=== PATIENT | male | born 1990 | race Caucasian/White ===

== ENCOUNTER 2021-11-20 14:10 | Emergency (ER) | payer SELFPAY ==
[2021-11-20 14:16] VITALS: BP 124/61; PULSE 70; RESP 16; TEMP 36.8; O2SAT 99
[2021-11-20 15:28] VITALS: BP 109/49; PULSE 59; TEMP 35.7; O2SAT 97
--- NOTE | 2021-11-20 16:19 | ED.GENADUL_ITS ---
Discharge Plan Disposition Patient Disposition: HOME Condition: Stable Discharge Details Clinical Impression: Reactive lymphadenopathy, Lymph node enlargement Primary Care Provider: Unknown,Unknown ED Provider: Amber Mcduffie Home Meds and New Rx's Prescriptions: No Action No Known Home Meds 0RF Discharge Instructions Instructions: Lymphadenopathy (ED) Additional Instructions: It is suspected that your areas of neck swelling are most likely secondary to a lymph node. These may be an reaction to the local skin rash on your scalp or recent dental issue. It is recommended that you take ibuprofen 600 mg every 6 hours as needed and directed for pain. You can consider applying warm compresses to the affected area. If your symptoms do not improve or worsen, return immediately to the emergency department for reevaluation and consideration for lab work and imaging at that time. You have been placed on care management list to arrange for a follow-up appointment with a primary care doctor to establish care and for reevaluation Discharge Data Discharge Date/Time-TO BE ENTERED AT DEPARTURE: 11/20/21 16:40 Discharge Physician: Amber Mcduffie Medical Decision Making 30-year-old male with no significant past medical history presents with tender lumps on the left side of his neck for the last 5 days. Denies any other associated symptoms. He does endorse having a rash on the left side of his head in the last few weeks which is near resolved. Patient appears comfortable and nontoxic. His vitals are within normal limits. He has a 3 mm crusted lesion on the left side of his head. He has 2 to centimeter soft, mildly tender, mobile masses on the left side of his neck in the posterior cervical region which appear likely consistent with lymph nodes. Discussed with patient that it is reassuring that they are soft and mobile, however the size of 2 cm may warrant further investigation. Discussed with patient that he may have a viral process or a reactive lymph node in the setting of recent left-sided scalp rash scalp rash, and recent left lower dental fracture. The rash does not appear consistent with shingles or cellulitis and the dental decay does not appear to warrant antibioitic treatment at this time. Patient states he would rather continue to monitor his symptoms and trial a course of NSAIDs of the neck few days. Advised patient to return here immediately if symptoms not improve or worsen for consideration of labs and imaging at that time. Patient placed on care management list to arrange for follow-up appoint with the primary care doctor to establish care for reevaluation. Medical Records Medical records reviewed: Yes I reviewed the patient's medical records. HPI General Mode of arrival: ambulatory . Date/Time Provider Initiated Documentation: 11/20/21 14:27 . Limitations to Documentation: no limitations . Information obtained by: patient . HPI Narrative: Patient is a 30-year-old male with no significant past medical history presents with tender lymph node on the left side of his neck for the past 5 days. He states they have grown in size and are mildly tender. He denies any fever, headache, ear pain, nasal discharge, sore throat, cough, chest pain, shortness of breath, weight loss, night sweats. He states he has been feeling fine ot [facility]wise. He does state that he had a rash on the left side of his head in the last few weeks which has since near resolved. He states he has had chickenpox in the past and thought the rash is secondary to shingles. He states he has not seen anyone for this rash and has not received any treatment. Related Data Home Medications Medication Instructions Recorded Confirmed Unknown [No Known Home Meds] 11/20/21 11/20/21 Allergies Allergy/AdvReac Type Severity Reaction Status Date / Time No Known Allergies Allergy Unverified 11/20/21 14:22 General Stated Complaint: RashLesion ILA: 4 Review of Systems All systems reviewed & are unremarkable except as noted in HPI and below Constitutional Constitutional: Reports as per HPI, Denies body ache(s), Denies chills, Denies fatigue, Denies fever(s), Denies headache(s), Denies malaise, Denies night sweats, Denies poor appetite and Denies weight loss Eyes Eyes: Denies blurry vision ENT Ears, Nose, Mouth, and Throat: Denies dizziness, Denies headache(s), Denies sore throat and Denies throat swelling Cardiovascular Cardiovascular: Denies chest pain and Denies dyspnea Respiratory Respiratory: Denies cough and Denies dyspnea Gastrointestinal Gastrointestinal: Denies abdominal pain, Denies diarrhea and Denies vomiting Genitourinary Genitourinary: Denies hematuria and Denies dysuria Musculoskeletal Musculoskeletal: Denies back pain and Denies numbness Integumentary/Breasts Skin/Breast: Denies lesions and Denies rash Neurologic Neurologic: Denies dizziness, Denies headache(s), Denies localized weakness and Denies numbness Endocrine Endocrine: Denies fatigue Allergic/Immunologic Allergic/Immunologic: Denies throat swelling PFSH All Active Problems (Updated 11/20/21 @ 16:29 by Amber Mcduffie DO) Reactive lymphadenopathy (Acute) Lymph node enlargement (Acute) Social History Smoking/Tobacco Use Status: Current every day Tobacco Type: smokeless tobacco Smoking risk assessment performed?: Yes Substance use type: marijuana Exam Const General: cooperative, healthy appearing and no acute distress Orientation: alert, awake and oriented x3 HENMT Head: normal to inspection Head images: 1. 2mm crusted lesion Ears: hearing grossly normal bilaterally, external ears normal and TM's normal bilaterally General nose exam: external nose normal Face and sinus: normal facial exam Mouth: oral mucosae normal Teeth and gingiva: poor dentition Teeth image: 1. Dental fracture, no surrounding erythema, edema, fluctuance or induration. Throat: posterior oropharynx normal Eyes General: appearance normal, both eyes and all related structures Neck Neck: normal visual inspection Neck images: 1. 2cm soft, mobile, tender superior posterior cervical mass, c/w lymph node. 2. 2cm soft, mobile, tender superior posterior cervical mass, c/w lymph node. Resp Effort & Inspection: normal respiratory effort and able to speak in complete sentences Cardio Rate: regular rate Skin General skin exam: no rashes or lesions noted Neuro General: patient alert, patient awake and patient oriented x3 Motor: muscle tone normal throughout Extrem General: normal to inspection and full ROM Psych Appearance: grossly normal Affect: normal affect Course Vital Signs Vital signs: Vital Signs Temperature 98.2 F 11/20/21 14:16 Pulse 70 11/20/21 14:16 Respiratory Rate 16 11/20/21 14:16 Blood Pressure 124/61 11/20/21 14:16 Pulse Oximetry 99 11/20/21 14:16 Temperature 96.3 F L 11/20/21 15:28 Temperature Source Tympanic 11/20/21 15:28 Pulse 59 L 11/20/21 15:28 Respiratory Rate 16 11/20/21 14:16 Respiratory Effort 11/20/21 14:16 Blood Pressure 109/49 L 11/20/21 15:28 Blood Pressure Position Sitting 11/20/21 14:16 Pulse Oximetry 97 11/20/21 15:28 Oxygen Delivery Method Room Air 11/20/21 15:28 Oxygen Flow Rate 0 11/20/21 15:28 Pain Level 2 11/20/21 14:16 PAWSS Have you Been Recently Intoxicated or Drunk Within the Last 30 days?: Yes Have you Ever Experienced Previous Episodes of Alcohol Withdrawal?: No Have you ever Experienced Withdrawal Seizures?: No Have you ever Experienced Delirium Tremens(DT)s?: No Have you ever undergone Alcohol Rehabilitation Treatment (i.e, inpt ot outpatient treatment programs)?: No Have you ever Experienced Blackouts?: No Have you ever Combined Alcohol with other Downers within the last 90 days?: No Have you ever Combined Alcohol with any other Substance of Abuse during the last 90 days?: No Positive Blood Alcohol level on Presentation? [PCS.BAL]: No Evidence of Increased Autonomic Activity (i.e. HR>120, tremor, sweating, agitation, nausea)?: No Result: 1
[2021-11-20 16:40] VITALS: BP 109/49; PULSE 59; TEMP 35.7; O2SAT 97
== END 2021-11-20 16:40 | disposition home or self-care (01) ==
PROVIDERS: Emergency Provider Physician Assistant
DX: R59.0 Localized enlarged lymph nodes (principal); Z86.16 Personal history of COVID-19
CPT/HCPCS: 99282

== ENCOUNTER 2021-11-30 13:00 | Emergency (ER) | payer SELFPAY ==
[2021-11-30 13:05] VITALS: BP 134/86; PULSE 78; RESP 15; TEMP 36.4; O2SAT 98
--- NOTE | 2021-11-30 13:15 | ED.GENADUL_ITS ---
Discharge Plan Disposition Patient Disposition: HOME Condition: Stable Discharge Details Clinical Impression: Lymphadenopathy, cervical Primary Care Provider: Unknown,Unknown ED Provider: Amber Mcduffie Home Meds and New Rx's Prescriptions: No Action No Known Home Meds 0RF Discharge Instructions Instructions: Lymphadenopathy (ED) Additional Instructions: Your CT scan notes that you have lymph nodes which may be secondary to infection or may be the result of another process. It is recommended by [facility] that you obtain a biopsy of these lymph nodes for further evaluation. Drink plenty of fluids and get plenty of rest. Take 600 mg of ibuprofen every 6 hours as needed and directed for pain. You have been placed on care management list to help arrange for a follow-up appointment with a primary care doctor to establish care and for referral to [facility] interventional radiology or general surgery for biopsy of your lymph nodes for further evaluation. It is also recommended that you follow-up with a primary care doctor for recheck of your liver enzymes which were elevated today. You can call [facility] main number at [phone] and ask for hospice care sales consultant Shelly Stuart to confirm this appointment and for any further information. Return immediately to the emergency department if you develop any worsening or new concerning symptoms. Discharge Data Discharge Date/Time-TO BE ENTERED AT DEPARTURE: 11/30/21 16:53 Discharge Physician: Amber Mcduffie Medical Decision Making 30-year-old male who presents to the ED with complaint of 2 tender lumps to the left side of his neck for the past few weeks. Vitals within normal limits. Patient appears comfortable and nontoxic. I evaluated patient on his ED visit on November 20 and discussed obtaining lab work and imaging at that time but he declined. His exam at that time was reassuring in that the masses were soft, mobile without surrounding cellulitis and he gen erally appears nontoxic without other reported symptoms of fever, or weight loss and it was suspected that they are lymph nodes. He had no other signs or symptoms, there was no indication for antibiotics or steroids at that time. He had preferred to take ibuprofen at that time and then return if needed. He states that his symptoms did improve after the ibuprofen. Review of his neck reveals that the masses do appear smaller in size without surrounding cellulitis. He has a normal ENT exam. Suspect most likely they are lymph nodes considering that they did improve with ibuprofen and remain soft and mobile. Patient is concerned that they are persistent. He is agreeable with plan for IV, screening labs and CT neck. We will give a dose of Toradol, Decadron and fluids and reassess. Labs and imaging reviewed. Normal white blood cell count. Normal electrolytes. AST elevated at 138. ALT elevated at 71. Normal ESR and CRP. CT neck notes: IMPRESSION: Enlarged left-sided posterior cervical chain lymph nodes could be reactive secondary to infection versus lymphoma. Imaging reviewed with radiology who notes that the nodes are reassuring appearing in that they are homogenous. Discussed case with [facility] hematology who reviewed imaging. As this is an isolated lymphadenopathy, recommend follow-up with [facility] IR or general surgery for excisional biopsy. Recommend adding an LDH level which if low is more reassuring that this is likely reactive and not indicative of another more concerning process. His LDH level was noted to minimally elevated at 249 outside of the reported normal range of 85-227. Patient does not have a PCP. He was placed on care management list to arrange for follow-up appointment with the primary care doctor on his last visit earlier this month but has not yet heard back. A detailed message was left for care management list to ensure that patient has follow-up with [facility] IR or [facility] surgery as soon as possible for excisional biopsy. He may need urgent follow-up with her PCP to allow this referral to happen ro. Pt reports he understands and feels comfortable with this plan. Usual and customary return precautions given prior to discharge. Medical Records Medical records reviewed: Yes I reviewed the patient's medical records. Imaging Data Radiologic Study: Radiologist's impression: CT NECK W CLINICAL HISTORY:? L lateral cervical neck lymph nodes. ? TECHNIQUE:? Imaging Protocol: Axial computed tomography images with coronal and sagittal reformatted images were created and reviewed CONTRAST MATERIAL:? Intravenous: Omnipaque 350 Contrast volume:99 ml Contrast route:IV - COMPARISON:? No exams were available for comparison? FINDINGS: The exam is limited by lack of fat delineating the muscles.? Parotids/subm andibular/thyroid gland:? Normal. Lymphadenopathy:? There are enlarged lymph nodes on the left side of the of the neck in the posterior cervical chain.? More superior, VA node measures 2.2 cm.? An inferior, VB, node measures 2.5 cm.? There are few other smaller nodes the posterior cervical chain on the left peer.? Carotids/Jugular:? Within normal limits. Soft tissues:? The floor the mouth is unremarkable. The epiglottis and vocal cords are within normal limits. Images through both lung apices show a few small blebs..? IMPRESSION: Enlarged left-sided posterior cervical chain lymph nodes could be reactive secondary to infection versus lymphoma. Results of this exam have been verbally communicated with emergency department provider. Lab Data Lab results reviewed: Yes I reviewed the patient's lab results. Labs: Laboratory Tests Range/Units 11/30/21 11/30/21 11/30/21 13:30 13:30 13:30 WBC (4.4-10.8) 10^3/uL 9.27 RBC (4.36-5.78) 10^6/uL 4.74 Hgb (13.5-17.5) g/dL 14.8 Hct (40.0-50.0) % 44.5 MCV (80-95) fL 93.9 MCH (27.0-33.0) pg 31.2 MCHC (32.0-36.0) % 33.3 RDW (11.8-14.1) % 12.4 Plt Count (130-400) 10^3/uL 319 MPV (8.0-11.0) fL 8.5 Immature Gran % 0.3 Neutrophils % 77.5 Lymphocytes % 15.6 Monocytes % 5.8 Eosinophils % 0.5 Basophils % 0.3 Nucleated RBC % % 0 Absolute Neutrophils (1.2-6.7) 10^3/uL 7.17 H Absolute Lymphocytes (1.2-3.4) 10^3/uL 1.45 Absolute Monocytes (0.1-0.8) 10^3/uL 0.54 Absolute Eosinophils (0.0-0.7) 10^3/uL 0.05 Absolute Basophils (0.0-0.2) 10^3/uL 0.03 ESR (0-15) mm/hr 2 Sodium (136-145) mmol/L 141 Potassium (3.5-5.1) mmol/L 4.1 Chloride (98-107) mmol/L 105 Carbon Dioxide (21.0-32.0) mmol/L 26.7 Anion Gap (3-11) mmol/L 9.3 BUN (7-18) mg/dL 18 Creatinine (0.70-1.30) mg/dL 1.1 Estimated GFR/1.73 m2 (mL/min/1.73m2) >= 60.00 Glucose (74-106) mg/dL 126 H Calcium (8.5-10.1) mg/dL 9.1 Total Bilirubin (0.2-1.0) mg/dL 0.5 AST (15-37) U/L 138 H ALT (16-63) U/L 71 H Alkaline Phosphatase (46-116) U/L 87 C-Reactive Protein (0.0-0.3) mg/dL < 0.05 Total Protein (6.4-8.2) g/dL 8.1 Albumin (3.4-5.0) g/dL 4.5 HPI General Mode of arrival: ambulatory . Date/Time Provider Initiated Documentation: 11/30/21 13:01 . Limitations to Documentation: no limitations . Information obtained by: patient . HPI Narrative: Patient is a 30-year-old male with no significant past medical history presents for reevaluation of 2 tender lumps noted to the left side of his neck for the past few weeks. Patient was seen here on November the same complaint and had discussed obtaining labs and imaging that he had declined at that time and preferred rather to take ibuprofen and then return if needed. Patient states he took ibuprofen for over 24 hours and noted that the symptoms improved but then stopped taking the medication and symptoms remained unchanged. He denies any worsening or improvement of symptoms since then. He states few weeks ago he noted tender lumps to the left side of his neck. He states initially they grow in size but have not grown since a couple weeks ago. He denies any fever, headache, sore throat, difficulty swallowing, neck pain, injury or any other change in his medical Related Data Home Medications Medication Instructions Recorded Confirmed Unknown [No Known Home Meds] 11/20/21 11/30/21 Allergies Allergy/AdvReac Type Severity Reaction Status Date / Time No Known Allergies Allergy Unverified 11/30/21 13:11 General Stated Complaint: Cellulitis ILA: 3 Review of Systems All systems reviewed & are unremarkable except as noted in HPI and below Constitutional Constitutional: Reports as per HPI, Denies chills, Denies excessive sweating, De nies fatigue and Denies fever(s) Eyes Eyes: Denies blurry vision ENT Ears, Nose, Mouth, and Throat: Denies dizziness, Denies sore throat, Denies throat swelling and Reports other (2 lumbs L side of neck ) Cardiovascular Cardiovascular: Denies chest pain and Denies dyspnea Respiratory Respiratory: Denies cough and Denies dyspnea Gastrointestinal Gastrointestinal: Denies abdominal pain, Denies diarrhea and Denies vomiting Genitourinary Genitourinary: Denies hematuria and Denies dysuria Musculoskeletal Musculoskeletal: Denies back pain and Denies numbness Integumentary/Breasts Skin/Breast: Denies lesions and Denies rash Neurologic Neurologic: Denies behavioral changes, Denies confusion, Denies dizziness, Denies localized weakness and Denies numbness Psychiatric Psychiatric: Denies behavioral changes, Denies confusion and Denies depression Endocrine Endocrine: Denies excessive sweating and Denies fatigue Hematologic/Lymphatic Hematologic/Lymphatic: Denies easy bruising and Denies lymphadenopathy Allergic/Immunologic Allergic/Immunologic: Denies throat swelling PFSH All Active Problems (Updated 11/30/21 @ 16:38 by Amber Mcduffie DO) Reactive lymphadenopathy (Acute) Lymph node enlargement (Acute) Lymphadenopathy, cervical (Acute) Social History Smoking/Tobacco Use Status: Current every day Tobacco Type: e-cigarettes Smoking risk assessment performed?: Yes Drug use: Daily Substance use type: marijuana Do you feel safe at home: Yes Do you feel safe in your relationship?: Yes Exam Const General: cooperative and healthy appearing Orientation: alert, awake and oriented x3 HENMT Head: normal to inspection Head images: 1. 2 x 2 centimeter mobile soft mass within the left superior lateral neck. There is no surrounding erythema, edema, induration, fluctuance, crepitus or rash. 2. 1.5cm soft mobile mass noted within the left inferior lateral neck. There is no surrounding erythema, edema, induration, fluctuance, crepitus or rash. Ears: hearing grossly normal bilaterally, external ears normal and TM's normal bilaterally General nose exam: external nose normal Face and sinus: normal facial exam Mouth: oral mucosae normal Teeth and gingiva: dentition normal Throat: posterior oropharynx normal Eyes General: appearance normal, both eyes and all related structures Eyelids: eyelids normal Pupils: PERRL EOM: EOM intact bilaterally Neck Neck: normal visual inspection, full ROM, no meningeal signs, trachea midline, supple, no anterior neck swelling and No submandibular swelling Lymphatic: no lymphadenopathy noted Chest Chest: normal inspection of the chest Resp Effort & Inspection: normal respiratory effort and able to speak in complete sentences Auscultation: clear to auscultation bilaterally Cardio Rate: regular rate Rhythm: regular rhythm GI Inspection: normal to inspection Palpation: soft, not firm, no guarding, no hepatosplenomegaly, no masses and nontender Auscultation: normal bowel sounds Back/Spine/Pelvis Back: no CVA tenderness Skin General skin exam: no rashes or lesions noted Neuro General: patient alert and patient awake Cognition: normal cognition Speech: speech normal Gait: normal gait Motor: muscle tone normal throughout Sensory Exam: no sensory deficits noted Extrem General: normal to inspection, full ROM and capillary refill normal Psych Appearance: grossly normal Mental Status: mental status grossly normal Speech and Movement: speech and movement normal Affect: normal affect Thought Process: normal Course Vital Signs Vital signs: Vital Signs Temperature 97.5 F L 11/30/21 13:05 Pulse 78 11/30/21 13:05 Respiratory Rate 15 11/30/21 13:05 Blood Pressure 134/86 11/30/21 13:05 Pulse Oximetry 98 11/30/21 13:05 Temperature 97.5 F L 11/30/21 13:05 Temperature Source Oral 11/30/21 13:05 Pulse 78 11/30/21 13:05 Respiratory Rate 15 11/30/21 13:05 Respiratory Effort Non-Labored 11/30/21 13:10 Blood Pressure 134/86 11/30/21 13:05 Blood Pressure Position Sitting 11/30/21 13:05 Pulse Oximetry 98 11/30/21 13:05 Oxygen Delivery Method Room Air 11/30/21 13:05 Oxygen Flow Rate 0 11/30/21 13:05 Pain Level 1 11/30/21 13:05
--- NOTE | 2021-11-30 13:30 | DI.CT_ITS ---
Exam(s) CT NECK W EXAM: CT NECK W CLINICAL HISTORY: L lateral cervical neck lymph nodes. TECHNIQUE: Imaging Protocol: Axial computed tomography images with coronal and sagittal reformatted images were created and reviewed CONTRAST MATERIAL: Intravenous: Omnipaque 350 Contrast volume:99 ml Contrast route:IV - COMPARISON: No exams were available for comparison FINDINGS: The exam is limited by lack of fat delineating the muscles. Parotids/submandibular/thyroid gland: N ormal. Lymphadenopathy: There are enlarged lymph nodes on the left side of the of the neck in the posterior cervical chain. More superior, VA node measures 2.2 cm. An inferior, VB, node measures 2.5 cm. Th ere are few other smaller nodes the posterior cervical chain on the left peer. Carotids/Jugular: Within normal limits. Soft tissues: The floor the mouth is unremarkable. The epiglottis and vocal cords are within normal limits. Images through both lung apices show a few small blebs.. IMPRESSION: Enlarged left-sided posterior cervical chain lymph nodes could be reactive secondary to infection jenni germaine lymphoma. Results of this exam have been verbally communicated with emergency department provider. RADIATION DOSE DELIVERED: 269.29mGy.cm Total DLP DATA REPOSITORY: All CT scans at this facility are submitted to the National Radiology Data Registry (NRDR) Dose Index Registry (DIR) with the [employer] (A[employer]). RADIATION OPTIMIZATION: All CT scans at this facility use at least one of these dose optimization te chniques: automated exposure control; mA and/or kV adjustment per patient size (includes targeted exa ms where dose is matched to clinical indication); or iterative reconstruction.
[2021-11-30 13:38] LABS: Abs Immature Grans 0.03 10^3/uL (0.0-0.06); Absolute Basophil Count 0.03 10^3/uL (0.0-0.2); Absolute Eosinophil Count 0.05 10^3/uL (0.0-0.7); Absolute Lymphocyte Count 1.45 10^3/uL (1.2-3.4); Absolute Monocyte Count 0.54 10^3/uL (0.1-0.8); Absolute Neutrophil Count 7.17 10^3/uL (1.2-6.7); Basophils % 0.3; Eosinophils % 0.5; HCT 44.5 % (40.0-50.0); HGB 14.8 g/dL (13.5-17.5); Immature Grans % 0.3; Lymphocytes % 15.6; MCH 31.2 pg (27.0-33.0); MCHC 33.3 % (32.0-36.0); MCV 93.9 fL (80-95); MPV 8.5 fL (8.0-11.0); Monocytes % 5.8; Neutrophils % 77.5; Nucleated RBC 0 %; Platelet Count 319 10^3/uL (130-400); RBC 4.74 10^6/uL (4.36-5.78); RDW 12.4 % (11.8-14.1); RDW-SD 43.4 fL; WBC 9.27 10^3/uL (4.4-10.8)
[2021-11-30 13:44] LABS: ESR 2 mm/hr (0-15)
[2021-11-30] MEDS: Ketorolac 30 MG/ML VIAL IVP (13:53)
[2021-11-30] MEDS: Normal Saline 1,000 ML 1000 ML IV (13:53)
[2021-11-30] MEDS: Dexamethasone 10 MG/ML VIAL IVP (13:53)
[2021-11-30 13:56] LABS: ALT 71 U/L (16-63); AST 138 U/L (15-37); Albumin 4.5 g/dL (3.4-5.0); Alkaline Phosphatase 87 U/L (46-116); Anion Gap 9.3 mmol/L (3-11); BUN 18 mg/dL (7-18); Bilirubin, Total 0.5 mg/dL (0.2-1.0); CO2 26.7 mmol/L (21.0-32.0); CREATININE 1.1 mg/dL (0.70-1.30); Calcium 9.1 mg/dL (8.5-10.1); Chloride 105 mmol/L (98-107); Glucose 126 mg/dL (74-106); Potassium 4.1 mmol/L (3.5-5.1); Sodium 141 mmol/L (136-145); Total Protein 8.1 g/dL (6.4-8.2)
[2021-11-30 13:58] LABS: C-Reactive Protein < 0.05 mg/dL (0.0-0.3)
[2021-11-30] MEDS: Omnipaque 350 MG/ML 100 ML BTL IJ (14:23)
[2021-11-30] MEDS: Normal Saline Flush 10 ML SYR IVP (14:24)
[2021-11-30 14:42] VITALS: BP 147/78; PULSE 76; RESP 14; TEMP 36.8; O2SAT 98
[2021-11-30 15:42] VITALS: BP 124/71; PULSE 68; TEMP 37; O2SAT 99
--- NOTE | 2021-11-30 15:56 | NUR.NOTE ---
Nursing Note: Referral given to Care Management: 1. [place] [facility] [place] [facility] [place] biopsy of lymph nodes of left side of neck, [place]. 2. Needs PCP for follow up after the [place]. [place] [facility] [place] Tonja Muse
[2021-11-30 16:14] LABS: LDH 249 U/L (85-227)
[2021-11-30 16:54] VITALS: BP 124/71; PULSE 68; TEMP 37; O2SAT 99
--- NOTE | 2021-12-01 13:04 | CMACTNOTE_ITS ---
- If Service Date Differs Date of service: 12/01/21 Time of Service: 13:04 Care Management Activity Note Saji is seen in the ED for enlarged lymph nodes. At the request of ED provider, CM coordinates a referral [place] [facility]. A referral is also made to Jason Paredes MD, of [facility], as Dr. Paredes was the on-call provider when Saji was first seen in the ED for lymphadenopathy, to assist Saji in establishing care with a PCP. A third referral is also made to [facility] to enlist their assistance in exploring health insurance options as Saji is currently uninsured. ANN attempts to reach Saji by telephone to discuss the referrals being made but there is no answer. ANN leaves a detailed message on his voicemail.
== END 2021-11-30 16:53 | disposition home or self-care (01) ==
PROVIDERS: Emergency Provider Physician Assistant
DX: R59.0 Localized enlarged lymph nodes (principal)
CPT/HCPCS: 36415; 70491; 80053; 85652; 96361; 96374; 96375; 99285; 83615; 85025; 86140; 99284; J1100; J1885; J3490

== ENCOUNTER 2023-03-03 01:07 | Outpatient (CLI) | payer MEDICAID, SELFPAY ==
--- NOTE | 2023-03-03 07:00 | DI.RAD_ITS ---
Exam(s) XR CERVICAL SPINE COMP 4-5V EXAM: XR CERVICAL SPINE COMP 4-5V CLINICAL HISTORY: limited cervical range of motion,ddd,m50.30,m53.82. TECHNIQUE: 2D digital imaging was performed. COMPARISON: No exams were available for comparison FINDINGS: Five views There is no evidence of fracture, listhesis, nor offset of the spinal laminar line. This spaces all exhibit normal height. On the oblique views there are small Luschka joint osteophytes on the left si de at C5-6 level. Facet joints appear unremarkable. No cervical ribs. Bone density is normal. No osseous lesions IMPRESSION: Small left-sided Luschka joint osteophyte at C5-6 level. This is indirect evidence of an element deg enerative disc disease, despite normal disc height. If clinically indicated follow-up MRI can be performed for added sensitivity and specificity. Wet read, as per request DATA REPOSITORY: RADIATION DOSE DELIVERED:
== END 2023-03-03 01:27 ==
LOC: DI 01:07
PROVIDERS: Referring Provider Nurse Practitioner; Visit Provider Nurse Practitioner
DX: M50.322 Other cervical disc degeneration at C5-C6 level (principal); M53.82 Other specified dorsopathies, cervical region
CPT/HCPCS: 36415; 80053; 80061; 86704; 86706; 86803; 87340; 87389; 72050; 82728; 85025

== ENCOUNTER 2023-03-22 01:30 | Outpatient (CLI) | payer MEDICAID, SELFPAY ==
--- NOTE | 2023-03-22 07:30 | DI.MRI_ITS ---
Exam(s) MR CERVICAL SPINE WO EXAM: MR CERVICAL SPINE WO CLINICAL HISTORY: evaluate osteophyte; joint space; bony path, decreased rom, ddd, M25.70 TECHNIQUE: Multiplanar multisequence MRI of the cervical spine was performed without intravenous con trast. COMPARISON: CR XR CERVICAL SPINE COMP 4-5V from 03/03/2023 FINDINGS: BONES: Vertebral body heights are maintained. Alignment is normal. Bone marrow signal intensity is wi thin normal limits. CERVICAL CORD: Craniovertebral junction is unremarkable. The cervical cord is normal size and signal intensity. SOFT TISSUES: Unremarkable. C2-3: No disc herniation or bulge is identified. No evidence of neural foraminal narrowing. No signi ficant central canal stenosis C3-4: No disc herniation or bulge is identified. No evidence of neural foraminal narrowing. No signif icant central canal stenosis C4-5: Minimal disc bulging and minimal endplate osteophytes. No evidence of neural foraminal narrowi ng. No significant central canal stenosis C5-6: Endplate osteophytes eccentric toward the left. Minimal disc bulging. Moderate left neural fo raminal narrowing. No significant central canal stenosis C6-7: Minimal this bulging and small endplate osteophytes. Moderate left neural foraminal narrowing. Mild narrowing of the AP dimension of the central canal. C7-T1: No disc herniation or bulge is identified. No evidence of neural foraminal narrowing. No signi ficant central canal stenosis IMPRESSION: Degenerative disc changes at C5-6 and C6-7 cause moderate left neural foraminal narrowing. No disc h erniation is identified. DATA REPOSITORY:
== END 2023-03-22 01:50 ==
LOC: DI 01:30
PROVIDERS: PCP Nurse Practitioner; Visit Provider Student in an Organized Health Care Education/Training Program
DX: M53.82 Other specified dorsopathies, cervical region; M50.323 Other cervical disc degeneration at C6-C7 level; M50.322 Other cervical disc degeneration at C5-C6 level; M25.78 Osteophyte, vertebrae
CPT/HCPCS: 72141

== ENCOUNTER 2023-05-21 14:59 | Emergency (ER) | payer MEDICAID, SELFPAY ==
[2023-05-21 15:03] VITALS: BP 142/96; PULSE 114; RESP 20; TEMP 37.3; O2SAT 99
--- NOTE | 2023-05-21 15:25 | W.ED.GENAD ---
Discharge Plan Discharge Details Chief Complaint: Nk/Back Pain Primary Care Provider: Misty Wallace ED Provider: Daysi Ring Home Meds and New Rx's Prescriptions: No Action ibuprofen 200 mg Tablet 200 mg PO Q6H PRN Medical Decision Making 32-year-old male presents to the ER with a chief complaint of lower back pain with radiation to his left anterior thigh which began yesterday after sitting down on his seat bent over to put on his boots. He does have a history of cervical spine degenerative disc disorder bipolar disorder. He reports he has been taking ibuprofen with little to no relief. Denies any loss of bowel or bladder control no saddle anesthesia. He does have positive straight leg test noted on the left. Distal CMS intact. Does have some left lower lumbar tenderness with palpation and left paraspinous tenderness palpation. Pain is worse with movement and walking. Lumbar spine x-rays ordered, IM Toradol and Norflex. Care is to be handed off to oncoming provider Surjit Harvey NP pending x-rays reevaluation and disposition. Discussed patient case with him he verbalizes understanding. This text was generated using [employer] system, please disregard any oddities of phrase or misspellings. HPI General Mode of arrival: ambulatory. Date/Time Provider Initiated Documentation: 05/21/23 15:05. Limitations to Documentation: no limitations. Information obtained by: patient, RN notes reviewed and old records reviewed. HPI Narrative: 32-year-old male presents to the ER with a chief complaint of lower back pain with radiation to his left anterior thigh which began yesterday after sitting down on his seat bent over to put on his boots. He does have a history of cervical spine degenerative disc disorder bipolar disorder. He reports he has been taking ibuprofen with little to no relief. Denies any loss of bowel or bladder control no saddle anesthesia. He does have positive straight leg test noted on the left. Distal CMS intact. Does have some left lower lumbar tenderness with palpation and left paraspinous tenderness palpation. Pain is worse with movement and walking. Related Data Home Medications Medication Instructions Recorded Confirmed ibuprofen 200 mg tablet 200 mg PO Q6H PRN 05/21/23 05/21/23 Allergies Allergy/AdvReac Type Severity Reaction Status Date / Time No Known Allergies Allergy Verified 02/22/23 09:09 General Stated Complaint: Nk/Back Pain ILA: 3 Review of Systems Musculoskeletal Musculoskeletal: Reports as per HPI, Reports back pain and Reports radiating pain into limb PFSH All Active Problems (Updated 03/03/23 @ 14:48 by Mei Alberto DO) Degenerative disc disease, cervical (Acute) Decreased ROM of intervertebral discs of cervical spine (Acute) Osteophyte determined by x-ray (Acute) Luschka joint osteophyte, left, C5-6level per XR, 03/03/23 .. confirms degenerative disease. Bipolar 1 disorder (Acute) Intermittent explosive disorder (Acute) Family history of hemochromatosis (Acute) Family History (Updated 02/22/23 @ 09:34 by Devorah Tariq LPN) Mother Alcohol use disorder Depression Hypertension Asthma Father Esophageal cancer Depression Anxiety Liver cancer Maternal Grandfather Alcohol use disorder Social History (Updated 02/22/23 @ 09:38 by Devorah Tariq LPN) Smoking/Tobacco Use Status: Current every day Tobacco Type: e-cigarettes Smoking risk assessment performed?: Yes Alcohol Intake: never Drug use: Daily Substance use type: marijuana Adopted: No Caregiver/Support person: No Foster care: No Household members: significant other and children Housing: house Number of Children: 1 Communication Needs: None Education Level: high school current occupation: unemployed Do you think of yourself as: straight/heterosexual Current gender identity: male What is your relationship status?: living with partner How often do you talk on the phone with friends or family?: once per week How often do you get together with friends or relatives?: never Panel score (0-1 are the most socially isolated patients): 1 What type of physical activity do you participate in: regular exercise and additional Details: lifts weights, push ups Duration: 15-30 minutes/day Frequency: 3-4 times per week Seatbelt use: always Helmet use: Yes 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 Appears stated age. Normal body habitus. Head: Normocephalic, no trauma. Eyes: Pupils PERRL, Red reflex noted, EOM's intact. Eyelids symmetrical without lesions, discharge, or swelling. Chest: RRR, Normal S1, S2, distal pulses intact. Resp: Lungs clear to auscultation bilaterally, no wheezes, rales, or rhonchi. Musculoskeletal: Stiff gait, 5/5 strength to all four extremities. L-spine tenderness around L5, left-sided paraspinous tenderness and spasm to the lumbar spine. Skin: No suspicious rashes or lesions. Capillary refill less than 2 sec. Neurologic: Cranial nerves II-XII intact. Alert and oriented x 3. Motor: No deficits noted. Sensory: Intact bilaterally all 4 extremities. Positive left straight leg test strength 5 out of 5 bilaterally Hematologic/Lymphatic: No ecchymosis, no lymphadenopathy. Course Vital Signs Vital signs: Vital Signs Temperature 37.3 C 05/21/23 15:03 Pulse 114 H 05/21/23 15:03 Respiratory Rate 20 05/21/23 15:03 Blood Pressure 142/96 H 05/21/23 15:03 Pulse Oximetry 99 05/21/23 15:03 Temperature 37.3 C 05/21/23 15:03 Temperature Source Temporal Artery Scan 05/21/23 15:03 Pulse 114 H 05/21/23 15:03 Respiratory Rate 20 05/21/23 15:03 Respiratory Effort Normal, Non-Labored 05/21/23 15:09 Blood Pressure 142/96 H 05/21/23 15:03 Blood Pressure Position Sitting 05/21/23 15:03 Pulse Oximetry 99 05/21/23 15:03 Oxygen Delivery Method Room Air 05/21/23 15:03 Oxygen Flow Rate 0 05/21/23 15:03 Pain Level 7 05/21/23 15:03 Sign Out Sign Out Data: Sign Out Comment: Pending X-Rays of L spine, IM medications, and Dispo. Last updated by Daysi Ring NP at 05/21/23 15:42
--- NOTE | 2023-05-21 15:58 | DI.RAD_ITS ---
Exam(s) XR LUMBAR SPINE COMPLETE EXAM: XR LUMBAR SPINE COMPLETE CLINICAL HISTORY: Lumbar back pain. TECHNIQUE: 2D digital imaging was performed of the lumbar spine. Images were obtained. AP, later al, right oblique, left oblique and L5-S1 spot views were obtained. COMPARISON: No exams were available for comparison FINDINGS: BONES: No fracture or destructive lesion. Vertebral bodies are unremarkable. No facet hypertrophy man ntified. DISKS: Intervertebral disc spaces are maintained. ALIGNMENT: There is a mild levoscoliosis of the thoracolumbar spine. No spondylolysis or spondylolis thesis. SOFT TISSUE: Normal. IMPRESSION: Unremarkable radiographs of the lumbar spine. DATA REPOSITORY: RADIATION DOSE DELIVERED:
[2023-05-21] MEDS: Ketorolac 60 MG/2 ML VIAL IM (15:59)
[2023-05-21] MEDS: Orphenadrine 60 MG/2 ML VIAL IM (15:59)
--- NOTE | 2023-05-21 16:10 | DI.VRAD_ITS ---
PROCEDURE INFORMATION: Exam: XR Lumbosacral Spine Exam date and time: 05/21/2023 3:45 PM Age: 32 years old Clinical indication: Low back pain; Patient HX: Lumbar back pain, patient states they started feeling pain yesterday after a the toilet seat shifted well they were sitting on it. TECHNIQUE: Imaging protocol: Radiologic exam of the lumbosacral spine. Views: 4 or 5 views. COMPARISON: No relevant prior studies available. FINDINGS: Bones/joints: Mild levoscoliosis of the lumbar spine. There is no evidence of acute fracture.There is no evidence of malalignment or dislocation. Intervertebral disc spaces are maintained. Soft tissues: Unremarkable. IMPRESSION: 1. There is no evidence of acute fracture.There is no evidence of malalignment or dislocation. 2. Intervertebral disc spaces are maintained. Dictated and Authenticated by: Suzy Mcclain MD. Ordering:GARCIA Tavarez MD
--- NOTE | 2023-05-21 16:51 | ED.PROG_ITS ---
Date of service: 05/21/23 Time of Service: 16:00 Medical Decision Making Patient signed out to me by Daysi Ring NP pending radiological imaging and reassessment. Reviewed radiological imaging which showed no acute findings. Reassessed patient patient did state improvement of pain and discomfort. We will add a lidocaine patch to see if that further helps otherwise we will discharge patient with Flexeril and Toradol p.o. to use at home. Work note was given along with activity recommendations and restrictions. After discussion of diagnosis and plan of care patient has no further needs, questions, or concerns and states clear understanding to return to the emergency department for any worsening s ymptoms. This documentation was generated using [employer] dictation system, please disregard any oddities of phrase or misspellings. Imaging Data Radiologic Study: Imaging: X-Ray Radiologist's impression: Exam(s) PROCEDURE INFORMATION: Exam: XR Lumbosacral Spine Exam date and time: 05/21/2023 3:45 PM Age: 32 years old Clinical indication: Low back pain; Patient HX: Lumbar back pain, patient states they started feeling pain yesterday after a the toilet seat shifted well they were sitting on it. TECHNIQUE: Imaging protocol: Radiologic exam of the lumbosacral spine. Views: 4 or 5 views. COMPARISON: No relevant prior studies available. FINDINGS: Bones/joints: Mild levoscoliosis of the lumbar spine. There is no evidence of acute fracture.There is no evidence of malalignment or dislocation. Intervertebral disc spaces are maintained. Soft tissues: Unremarkable. IMPRESSION: 1. There is no evidence of acute fracture.There is no evidence of malalignment or dislocation. 2. Intervertebral disc spaces are maintained. Sign Out Sign Out Data: Sign Out Comment: Pending X-Rays of L spine, IM medications, and Dispo. Last updated by Daysi Ring NP at 05/21/23 15:42 Discharge Plan Disposition Patient Disposition: Home Discharge Details Clinical Impression: Acute lumbar myofascial strain Primary Care Provider: Misty Wallace ED Provider: Jacques Harvey Home Meds and New Rx's Prescriptions: New cyclobenzaprine 10 mg tablet 10 mg PO TID PRN (Reason: muscle spasm) Qty: 20 0RF ketorolac 10 mg tablet 10 mg PO TID PRN (Reason: pain) 5 Days Qty: 15 0RF Held ibuprofen 200 mg Tablet 200 mg PO Q6H PRN Hold Instructions: Until after the prescribed medication is completed Discharge Instructions Instructions: Back Pain (ED), Lower Back Exercises (ED) Additional Instructions: At this time your radiological imaging did not show anything of emergent concern. If you have any new or worsening symptoms as discussed please return the emergency department for reassessment. Please do not take any further NSAIDs such as ibuprofen, Motrin, Aleve, Advil or aspirin while on the prescribed pain medication. Also do not mix the muscle relaxer with any alcohol or other sedating substances. Please follow-up with your primary care provider if not improving over the next 1 to 2 weeks. Stand Alone Forms: Work Release Referrals: Misty Wallace NP [Primary Care Provider] - (As needed for reassessment)
== END 2023-05-21 18:25 | disposition home or self-care (01) ==
PROVIDERS: Emergency Provider Nurse Practitioner Family; PCP Nurse Practitioner
DX: M54.50 Low back pain, unspecified (principal); F17.200 Nicotine dependence, unspecified, uncomplicated
CPT/HCPCS: 96372; 99284; J2360; 72110; 99283; J1885

== ENCOUNTER 2025-02-17 07:06 | Emergency (ER) | payer MEDICAID, SELFPAY ==
[2025-02-17 07:09] VITALS: PULSE 75; RESP 18; TEMP 36.6; O2SAT 100
[2025-02-17 07:18] VITALS: BP 136/78; PULSE 75; RESP 18; TEMP 36.6; O2SAT 100
--- NOTE | 2025-02-17 07:18 | ED.GENADUL_ITS ---
Discharge Plan Disposition Patient Disposition: Home Condition: Stable Discharge Details Clinical Impression: Low back strain, Nausea vomiting and diarrhea Primary Care Provider: Misty Wallace ED Provider: Jennifer Arriola Home Meds and New Rx's Prescriptions: New lidocaine [Lidoderm] 5 % adhesive patch,medicated 1 patch topical DAILY Qty: 30 0RF Rx Instructions: leave on most painful area for up to 12 hrs ondansetron 4 mg tablet,disintegrating 4 mg PO Q8H PRNQty: 10 0RF Continued omeprazole 20 mg capsule,delayed release(DR/EC) 20 mg PO DAILY Qty: 90 3RF No Action omeprazole 40 mg capsule,delayed release(DR/EC) 40 mg PO BID Rx Instructions: 10/28/24-increased to BID by [facility] Dr Farrar Discharge Instructions Instructions: Back Muscle Strain (DC) Additional Instructions: You were seen in the emergency department today for evaluation after injuring your lower back while vomiting. In our department a full physical examination performed, had reassuring laboratory studies, and received medications for your symptoms. You likely strained a muscle, and did not have any emergency causes of your vomiting that require you to stay in the hospital today. However, I do want you to continue to maintain good hydration and nutrition, and use Lidoderm patches over the area of maximal pain. Please use therapeutic dosing of Tylenol (acetaminophen) & Advil (ibuprofen) in an alternating fashion as follows: Take 1000mg of Tylenol every 6 hours without missing doses- that is 4 times per day. Half-Way in between the Tylenol doses, take 600mg of Advil also on a 6 hour schedule, that is also 4 times per day. With this strategy, you will be taking something for fever/pain as often as every 3 hours. The daily maximum dosing of Tylenol is 4000mg, and the daily maximum dosing of Advil is 2400mg. Please note that some common cold medications & prescription pain medications may contain acetaminophen and you need to read OTC drug labels and factor that in to maximum daily doses. Please follow-up with your primary care provider in the next few days to discuss this visit and any symptoms that change, worsen, or persist. Thank you for allowing us to be part of your care. HPI General Mode of arrival: ambulatory . Date/Time Provider Initiated Documentation: 02/17/25 07:07 . Limitations to Documentation: no limitations . Information obtained by: patient and old records reviewed . HPI Narrative: This is a 34-year-old male patient with a history of bipolar 1, GERD, who is presenting for evaluation of nausea with vomiting and low back pain. The patient reports that yesterday she he had an episode of nonbloody diarrhea, and today woke up feeling very nauseated with a metallic/chemical taste in his mouth. He had an episode of dry heaving and while doing so believes that he threw out his lower back. Initially he had pain across the entirety of his lower back, now it is located over the right paraspinal lumbar muscles and SI joint region. He reports that this pain does not radiate, is not associated with any weakness, numbness, or bowel or bladder dysfunction. The patient has not had abdominal pain, denies hematemesis, nobody else in his home is sick with similar symptoms. He reports that he has not had any recent exposure to treated water sources, has not taken antibiotics or been hospitalized recently. No history of abdominal surgeries. He took a Zofran prior to arrival and this has resolved his nausea. Related Data Home Medications ?Medication ?Instructions ?Recorded ?Confirmed omeprazole 40 mg capsule,delayed 40 mg PO BID 11/01/24 02/17/25 release lidocaine 5 % topical patch 1 patch topical DAILY #30 ea 02/17/25 (Lidoderm) omeprazole 20 mg capsule,delayed 20 mg PO DAILY #90 caps 02/17/25 release ondansetron 4 mg disintegrating 4 mg PO Q8H PRN #10 tabs 02/17/25 tablet Previous Rx's ?Medication ?Instructions ?Recorded lidocaine 5 % topical patch 1 patch topical DAILY #30 ea 02/17/25 (Lidoderm) omeprazole 20 mg capsule,delayed 20 mg PO DAILY #90 caps 02/17/25 release ondansetron 4 mg disintegrating 4 mg PO Q8H PRN #10 tabs 02/17/25 tablet Allergies Allergy/AdvReac Type Severity Reaction Status Date / Time No Known Allergies Allergy Verified 02/17/25 07:17 General Stated Complaint: GenMedical ILA: 3 Exam Narrative Exam Narrative: Gen: awake and alert, in no apparent distress. Appears well nourished. HEENT: PERRL. External ears and nose normal, mucous membranes moist. Neck: Supple, full range of motion, no observable masses Lungs: No increased work of breathing, lung sounds clear and equal bilaterally without wheezes, rhonchi, or rales. CV: Heart with regular rate and rhythm, no murmurs auscultated. Strong and symmetrical radial pulses. Abdomen: Soft, nondistended, non-tender to palpation. No rigidity, rebound tenderness, or guarding. MSK: No joint swelling, no redness. Full ROM without limitation, no external traumatic findings. The patient's midline spine is nontender, does have tenderness over the right sided lumbar paraspinal muscles, no muscular spasms palpable. The patient has reproduction of pain with active flexion at the hip right greater than left, and he has no radiation of the pain down to the leg with straight leg raise bilaterally. Skin: No rashes or lesions to visualized skin. Normal color, warm, and dry. Neuro: Cranial nerves II-XII intact and symmetrical bilaterally. 5/5 strength in all muscle groups x4 extremities. No sensory deficits. Ambulates with steady gait. Psych: Appropriate for situation. Course Vital Signs Vital signs: Vital Signs Temperature 36.6 C 02/17/25 07:09 Pulse 75 02/17/25 07:09 Respiratory Rate 18 02/17/25 07:09 Pulse Oximetry 100 02/17/25 07:09 Temperature 36.6 C 02/17/25 07:09 Temperature Source Tympanic 02/17/25 07:09 Pulse 75 02/17/25 07:09 Respiratory Rate 18 02/17/25 07:09 Blood Pressure Position Sitting 02/17/25 07:09 Pulse Oximetry 100 02/17/25 07:09 Oxygen Delivery Method Room Air 02/17/25 07:09 Oxygen Flow Rate 0 02/17/25 07:09 Medical Decision Making This is a 34-year-old male patient presenting for evaluation of nausea with vomiting and diarrhea as well as a lower back injury during vomiting. Regarding the back injury, my differential includes but is not limited to muscular strain/spasm, certainly considered lumbar disc disease, no evidence of sciatica on my physical examination. Mechanism less consistent with trauma, such as fracture or dislocation, and there are no red flag symptoms such as neurodeficit, bowel or bladder dysfunction, fevers or chills, to suggest emergent diagnoses such as cauda equina syndrome, spinal epidural abscess, osteomyelitis/discitis, spinal cord compression. Regarding the nausea with vomiting and diarrhea, considered gastroenteritis, gastritis, pancreatitis, hepatitis, cholecystitis, UTI/pyelonephritis, renal stone, exam less consistent with appendicitis or diverticulitis. The patient also reports that he has been using a nicotine patch, and wonders if he could have gotten nicotine poisoning, which is certainly a possibility though difficult to discern by history and laboratory studies alone. We will provide the patient with multimodal pain management for his lower back strain, to include Tylenol, Toradol, and a Lidoderm patch. I do not see an indication at this time for advanced imaging. We will obtain laboratory studies for his nausea with vomiting and diarrhea to include CBC, CMP, magnesium, lipase, and urinalysis. - I independently interpreted the laboratory studies, which show no significant leukocytosis, anemia, or thrombocytopenia. The chemistry panel is without evidence of electrolyte abnormality, kidney dysfunction, or liver injury. Lipase is low, urinalysis noninfectious. On reassessment, the patient reports that he is feeling much improved in terms of his pain and has had no recurrence of his nausea. I am most concerned for a muscular strain, and his nausea and vomiting is of short duration, is potentially due to gastroenteritis, but certainly I did not identify any emergent causes of his symptoms that would warrant further management here in the emergency department. I did provide him with prescriptions for Lidoderm patches, Zofran, and refilled his pantoprazole to protect his GI tract during NSAID use. At this time, the patient has had a full medical evaluation and is safe for discharge to home. They are hemodynamically stable, ambulatory, and tolerating PO. They are understanding of the follow-up plan and return precautions. They left our facility without incident. Jennifer Arriola MD Medical Records Medical records reviewed: Yes I reviewed the patient's medical records. Lab Data Lab results reviewed: Yes I reviewed the patient's lab results. Quality:SDOH Health Related Social Needs: No Data to Display PFSH All Active Problems (Updated 02/17/25 @ 08:32 by Jennifer Arriola MD) Nausea vomiting and diarrhea (Acute) Low back strain (Acute) Esophageal dysphagia (Acute ~08/2024) 09/09/24 [facility] GERD (gastroesophageal reflux disease) (Chronic ~08/2024) Family history of Godfrey's esophagus (Acute) Degenerative disc disease, cervical (Acute) Decreased ROM of intervertebral discs of cervical spine (Acute) Osteophyte determined by x-ray (Acute) Luschka joint osteophyte, left, C5-6level per XR, 03/03/23 .. confirms degenerative disease. Bipolar 1 disorder (Acute) Intermittent explosive disorder (Acute) Family history of hemochromatosis (Acute) Medical History (Updated 02/17/25 @ 08:32 by Jennifer Arriola MD) Family history of esophageal cancer (~08/2024) 09/09/24 GI Surgical History (Updated 11/04/24 @ 14:18 by Angelita Shin RN) H/O esophagogastroduodenoscopy (10/28/24) [facility] w/biopsy sm hiatal hernia. 11/01/24-[facility] letter to pt: no Godfrey's esophagus seen. You did have esophagitis, and I recommend you increasing your omeprazole to twice a day Pam Farrar MD Family History (Updated 02/22/23 @ 09:34 by Devorah Tariq LPN) Mother Alcohol use disorder Depression Hypertension Asthma Father Esophageal cancer Depression Anxiety Liver cancer Maternal Grandfather Alcohol use disorder Social History (Updated 02/22/23 @ 09:38 by Devorah Tariq LPN) Smoking/Tobacco Use Status: Current every day Tobacco Type: e-cigarettes Smoking risk assessment performed?: Yes Alcohol Intake: never Drug use: Daily Substance use type: marijuana Details: Pt states he smokes marijuana daily 02/17/25 Adopted: No Caregiver/Support person: No Foster care: No Household members: significant other and children Housing: house Number of Children: 1 Communication Needs: None Education Level: high school current occupation: unemployed Do you think of yourself as: straight/heterosexual Current gender identity: male What is your relationship status?: living with partner How often do you talk on the phone with friends or family?: once per week How often do you get together with friends or relatives?: never Panel score (0-1 are the most socially isolated patients): 1 What type of physical activity do you participate in: regular exercise and additional Details: lifts weights, push ups Duration: 15-30 minutes/day Frequency: 3-4 times per week Seatbelt use: always Helmet use: Yes 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
[2025-02-17 07:21] VITALS: RESP 16
[2025-02-17] MEDS: Acetaminophen 500 MG TAB 1000 MG PO (07:28)
[2025-02-17] MEDS: Ketorolac 15 MG/ML VIAL IVP (07:28)
[2025-02-17] MEDS: Lidocaine 5% Patch 1 PATCH TP (07:29)
[2025-02-17 07:46] LABS: Abs Immature Grans 0.01 10^3/uL (0.0-0.06); Absolute Basophil Count 0.03 10^3/uL (0.0-0.2); Absolute Eosinophil Count 0.05 10^3/uL (0.0-0.7); Absolute Lymphocyte Count 1.38 10^3/uL (1.2-3.4); Absolute Monocyte Count 0.45 10^3/uL (0.1-0.8); Absolute Neutrophil Count 4.35 10^3/uL (1.2-6.7); Basophils % 0.5 %; Eosinophils % 0.8 %; HCT 48.2 % (40.0-50.0); HGB 16.3 g/dL (13.5-17.5); Immature Grans % 0.2 %; MCH 31.1 pg (27.0-33.0); MCHC 33.8 % (32.0-36.0); MCV 92 fL (80-95); MPV 8.8 fL (8.0-11.0); Monocytes % 7.2 %; Neutrophils % 69.3 %; Platelet Count 301 10^3/uL (130-400); RBC 5.24 10^6/uL (4.36-5.78); RDW 12.4 % (11.8-14.1); RDW-SD 41.9 fL; WBC 6.27 10^3/uL (4.4-10.8)
[2025-02-17 08:04] LABS: ALT 23 U/L (16-63); AST 25 U/L (15-37); Albumin 4.9 g/dL (3.4-5.0); Alkaline Phosphatase 90 U/L (46-116); BUN 11 mg/dL (7-18); Bilirubin, Total 0.5 mg/dL (0.2-1.0); CREATININE 1.1 mg/dL (0.70-1.30); Calcium 9.3 mg/dL (8.5-10.1); Chloride 103 mmol/L (98-107); Estimated GFR 90.34 (mL/min/1.73m2); Glucose 83 mg/dL (74-106); Lipase 40 U/L (<78); Potassium 3.7 mmol/L (3.5-5.1); Sodium 142 mmol/L (136-145); Total Protein 8.5 g/dL (6.4-8.2)
[2025-02-17 08:21] LABS: Bilirubin Negative (Negative); Blood Negative (Negative); Clarity Clear (Clear); Glucose Negative (Negative); Ketones Negative (Negative); Leukocyte Esterase Negative (Negative); Nitrite Negative (Negative); Specific Gravity 1.015 (1.005-1.025); Urobilinogen 0.2 mg/dL (Up to 0.2)
[2025-02-17 08:45] VITALS: BP 127/69; PULSE 64; RESP 14; O2SAT 100
== END 2025-02-17 08:48 | disposition home or self-care (01) ==
PROVIDERS: Emergency Provider Emergency Medicine; PCP Nurse Practitioner
DX: S39.012A Strain of muscle, fascia and tendon of lower back, initial encounter (principal); R11.2 Nausea with vomiting, unspecified; R19.7 Diarrhea, unspecified; F17.210 Nicotine dependence, cigarettes, uncomplicated; X50.9XXA Other and unspecified overexertion or strenuous movements or postures, initial encounter; Y93.89 Activity, other specified; Y92.018 Other place in single-family (private) house as the place of occurrence of the external cause
CPT/HCPCS: 36415; 80053; 83690; 99283; 81003; 83735; 85025; J1885

== ENCOUNTER 2025-05-21 14:51 | Outpatient (CLI) | payer MEDICAID, SELFPAY ==
--- NOTE | 2025-05-21 14:30 | DI.CT_ITS ---
Exam(s) CT CHEST WO EXAM: CT CHEST WO CLINICAL HISTORY: re-eval, abn image [id number] ABNL FINDINGS. TECHNIQUE: Imaging protocol: Axial computed tomography images were obtained and coronal and sagittal reformatted images were created and reviewed. Lung Computer Aided Detection (CAD) was utilized. COMPARISON: CT CT NECK W from 11/30/2021 FINDINGS: Tracheobronchial tree: Patent where visualized. No bronchiectasis is present. Pulmonary parenchyma: No consolidation or dominant measurable mass. No architectural distortion. There are stable small blebs in the lung apices. The lungs are otherwise clear. Mediastinum and Amanda: No dominant adenopathy or fluid collection. The esophagus is unremarkable.There is residual tissue in the anterior mediastinum likely reflecting residual thymus. Thyroid gland: Unremarkable. Pleura: No effusion or pneumothorax. Heart: The heart is not dilated. No coronary artery calcifications are seen. No pericardial effusion. Aorta: Thoracic aorta non-dilated. Upper abdomen: Unremarkable. Lymph nodes: Within normal limits. Soft tissues: Unremarkable. Bones:Within normal limits for the patient's age. IMPRESSION: 1. Stable small blebs in the lung apices. 2. There is no acute pulmonary process. RADIATION DOSE DELIVERED: 135.46mGy.cm Total DLP 135.46mGy.cm Total DLP DATA REPOSITORY: All CT scans at this facility are submitted to the National Radiology Data Registry (NRDR) Dose Index Registry (DIR) with the [employer] (A[employer]). RADIATION OPTIMIZATION: All CT scans at this facility use at least one of these dose optimization techniques: automated exposure control; mA and/or kV adjustment per patient size (includes targeted exams where dose is matched to clinical indication); or iterative reconstruction.
== END 2025-05-21 15:11 ==
LOC: DI 14:51
PROVIDERS: PCP Nurse Practitioner Family; Visit Provider Nurse Practitioner Family
DX: R93.89 Abnormal findings on diagnostic imaging of other specified body structures (principal)
CPT/HCPCS: 71250

== ENCOUNTER 2025-06-16 04:01 | Outpatient (CLI) | payer MEDICAID, SELFPAY ==
[2025-06-16] MEDS: Inhaler, Assist Device 1 EACH MC (16:39)
[2025-06-16] MEDS: Levalbuterol HFA 15 GM INH 4 PUFF IH (16:40)
--- NOTE | 2025-06-19 10:11 | W.PFT ---
Date of service: 06/16/25 Time of Service: 15:20 Pulmonary Function Test Result Indications: Pulmonary blebs Impression 1. Good patient effort was noted. ATS standards for reproducibility were met. 2. Spirometry showed mild obstructive lung disease with an FEV1 of 97% (3.37 L) 3. Following the administration of a bronchodilator there was not a significant response 4. TLC was normal. No evidence of restrictive lung disease 5. DLCO was normal at 95% predicted
== END 2025-06-16 04:02 | disposition home or self-care (01) ==
LOC: RT 04:01
PROVIDERS: PCP Nurse Practitioner Family; Visit Provider Physician Assistant Surgical
DX: J43.9 Emphysema, unspecified (principal); J44.9 Chronic obstructive pulmonary disease, unspecified
CPT/HCPCS: 94060; 94726; 94729